=== PATIENT | female | born 1980 ===

== ENCOUNTER 2022-06-24 13:50 | Emergency (ER) | payer OTHER ==
[~2022-06-24] VITALS: Ht 167.6 cm; Wt 122.5 kg
[2022-06-24] MEDS ORDERED: CEFD300 PO (14:28)
== END 2022-06-24 14:31 | disposition home or self-care (01) ==
LOC: ER 13:50
DX: K04.7 Periapical abscess without sinus (principal); Z88.0 Allergy status to penicillin; Z88.1 Allergy status to other antibiotic agents
CPT/HCPCS: 99282